=== PATIENT | male | born 1985 ===

== ENCOUNTER 2022-08-24 15:08 | Outpatient (REF) | payer OTHER, SELFPAY ==
[2022-08-26 11:16] LABS: COVID-19 RT-PCR UVMMC Result Negative (Negative)
== END 2022-08-24 15:09 | disposition home or self-care (01) ==
LOC: LBN 15:08
PROVIDERS: Visit Provider Physician Assistant Medical
DX: J02.9 Acute pharyngitis, unspecified (principal); Z20.822 Contact with and (suspected) exposure to COVID-19
CPT/HCPCS: U0003; 87081

== ENCOUNTER 2022-12-14 01:47 | Outpatient (CLI) | payer OTHER, SELFPAY ==
[2022-12-14 07:57] LABS: Calculated LDL 92 mg/dL (<100); Cholesterol 223 mg/dL (<200); HDL Cholesterol 120 mg/dL (40-60); Triglyceride 57 mg/dL (<150)
[2022-12-15 10:38] LABS: Hepatitis C Ab w Rflx HCV PCR Negative (Negative)
== END 2022-12-14 01:48 | disposition home or self-care (01) ==
LOC: LBO 01:47
PROVIDERS: Absent Provider Nurse Practitioner; PCP Nurse Practitioner; Visit Provider Nurse Practitioner
DX: Z13.220 Encounter for screening for lipoid disorders (principal); Z11.59 Encounter for screening for other viral diseases
CPT/HCPCS: 36415; 80061; 86803

== ENCOUNTER 2023-08-27 06:09 | Day surgery (SDC) | payer OTHER, SELFPAY ==
--- NOTE | 2023-08-26 07:21 | W.PM.DSUDISC ---
Date of service: 08/27/23 Time of Service: 08:02 Discharge Plan Disposition Patient Disposition: Home Condition: Good Discharge Details Reason For Visit: Colonoscopy Attending Provider: Mahesh Ramos Primary Care Provider: Windy Bernal Home Meds and New Rx's Prescriptions: Continued hydrocortisone acetate [Anusol-HC] 25 mg suppository 25 mg DC DAILY PRN (Reason: hemorrhoids) Qty: 24 3RF hydrocortisone 2.5 % cream with perineal applicator 1 applic DC BID PRN (Reason: hemorrhoids) Qty: 30 0RF Rx Instructions: Use for 7 days at a time escitalopram oxalate 10 mg tablet 10 mg PO DAILY Qty: 90 1RF triamcinolone acetonide 0.1 % cream 1 applic topical BID PRN (Reason: rash arms, legs) Qty: 80 3RF ketoconazole 2 % cream 1 applic topical DAILY Qty: 60 3RF Discontinued bisacodyl [Dulcolax (bisacodyl)] 5 mg tablet,delayed release (DR/EC) 5 mg PO ONCE Qty: 4 0RF Rx Instructions: Colonoscopy Bowel Prep- Per Instructions polyethylene glycol 3350 17 gram/dose powder 238 g PO ONCE Qty: 238 0RF Rx Instructions: Colonoscopy Bowel Prep- Per Instructions Discharge Instructions Instructions: Hemorrhoids (GEN) Additional Instructions: Seng, we were able to complete your colonoscopy today without any difficulty. You have a little bit of internal hemorrhoids, which could certainly account for some blood associated with bowel movements. Otherwise, the entire lining of your colon looked quite normal and healthy. I did perform multiple biopsies all along the way. I will be in touch when I have the results from the biopsies, but I do not suspect anything worrisome at this point. In the meantime, it would be very reasonable to add some more dietary fiber to help regulate your bowel movements. Recommendations for dietary fiber in the [place] suggest about 30 g or more, which most of us do not meet on a daily basis. Supplementing your diet with things like psyllium is a very reasonable approach for most people. 1. If tolerated, consume a soft, low fiber diet for 1-2 days. 2. Do not drive, drink alcohol, operate machinery, make critical decisions, or do activities that require coordination or balance for 24 hours. 3. Because air was put into your colon during the procedure, expelling air from your rectum (passing gas or farting) is normal. 4. You may not have a bowel movement for 1-3 days because of the colonoscopy prep. This is normal. 5. Go directly to the emergency room if you notice any of the following: Develop chills (warm to touch), or if you have a thermometer and your temperature is above 101 Difficulty breathing or difficultly swallowing Persistent vomiting Severe abdominal pain, other than gas cramps Severe chest pain Black, tarry stools Any bleeding ? exceeding one tablespoon 6. Call your physician if the site where your intravenous was started becomes red, swollen, painful, and warm to touch. 7. Your physician has reviewed your pre-procedure medications. Please continue to take those medications as previously ordered. You will be given specific information/education regarding any changes to your medications before leaving. Activity:: Activity as Tolerated Diet:: As Tolerated Discharge Orders Discharge Orders: Discharge Order (Routine); Ordered 08/26/23 Ordered By: Mahesh Ramos DS: Diagnosis Discharge Diagnosis (1) Change in bowel habits: Status: Acute
--- NOTE | 2023-08-26 07:23 | COLE_ITS ---
Date of service: 08/27/23 Time of Service: 08:05 Colonoscopy Report Date of procedure: 08/27/23 Pre-op diagnosis general: diagnostic colonoscopy Post-op diagnosis procedure note: other (Internal hemorrhoids; otherwise normal- appearing) Procedure: Colonoscopy with biopsies Surgeon: Mahesh Ramos Anesthesia Type: General:No Airway Estimated blood loss (mL): 10 Pathology: other (Random colon biopsies) Complications: None Disposition: same day Indications: Seng is 38 years old. He has palvic pain associated with some bowel movements and has had evidence of hematochezia in the past. Prep: Miralax/Dulcolax Procedure Start Time: 07:33 Procedure End Time: 07:44 Retraction Time: 4 Findings: Grade 1 internal hemorrhoids; otherwise normal-appearing colonoscopy Procedure Description: After the induction of monitored anesthetic care, and with the patient in left lateral decubitus position, I began by performing an external anorectal exam.? Perineum and skin were normal, as was the anal verge.? There was no not evidence of external hemorrhoids.? Next, I performed a digital rectal exam.? I did appreciate any abnormal findings.? Next, I advanced a colonoscope into the rectal vault.? I performed retroflexion.? There were grade 1 internal hemorrhoids.? Using insufflation, I then advanced the colonoscope beyond the rectal folds and into the sigmoid colon before advancing towards the cecum.? The quality of the prep was excellent.? The scope was noted to be in the cecum by identification of the ileocecal valve and appendiceal orifice.? Despite several attempts, I was not able to cannulate the terminal ileum. However, the ileocecal valve appeared totally normal, given the absence of other findings, I think the likelihood of terminal ileitis is quite low here. I then began withdrawing the colonoscope using repeated irrigation as necessary for full evaluation of the colonic mucosa. In order to rule out microscopic colitis, I did perform multiple biopsies of the colon and rectum using cold forceps. There was minimal bleeding. ?Once the scope was withdrawn to the level of the rectum, great care was taken to examine portions of the rectal folds.? Finally, the scope was withdrawn and the patient was brought to the same-day surgery recovery unit as the anesthetic wore off. ?The findings and instructions were shared with the patient prior to discharge. [place] Bowel Prep [place] Bowel Prep Right Colon: 3 Left Colon: 3 Transverse Colon: 3 Total Score: 9
[2023-08-27 06:31] VITALS: BP 124/83; PULSE 70; RESP 16; TEMP 36.6; O2SAT 100
[2023-08-27] MEDS: Lactated Ringers 1,000 ML 80 ML IV (06:35)
--- NOTE | 2023-08-27 06:55 | ANES.PREOP_ITS ---
General Info Date of Service Date Performed: 08/27/23 Height: 5 ft 5 in Weight: 71 kg Body Mass Index (BMI): 26.0 Surgical Procedure: Operation Date: 08/27/23 07:35 Proposed Procedure Side Surgeon alise Ramos MD Meds Allergies and Home Medications Allergies Allergy/AdvReac Type Severity Reaction Status Date / Time No Known Allergies Allergy Verified 08/27/23 06:18 Home Medication Medication Instructions Recorded ketoconazole 2 % topical cream 1 applic topical DAILY seborrhea 11/29/22 scalp #60 grams triamcinolone acetonide 0.1 % 1 applic topical BID PRN rash 11/29/22 topical cream arms, legs #80 grams hydrocortisone acetate 25 mg 25 mg CO DAILY PRN hemorrhoids #24 04/25/23 rectal suppository (Anusol-HC) ea hydrocortisone 2.5 % topical cream 1 applic CO BID PRN hemorrhoids 06/22/23 with perineal applicator #30 grams escitalopram oxalate 10 mg tablet 10 mg PO DAILY #90 tabs 07/03/23 Current Visit Medications: Current Medications Generic Name Dose Route Start Last Admin Trade Name Freq PRN Reason Stop Dose Admin Hyoscyamine Sulfate 0.125 mg 08/26/23 07:24 Hyoscyamine 0.125 Mg Sl/Oral/Chew SL 09/25/23 07:23 DIRECTED PRN Ringer's Solution 1,000 mls @ 80 mls/hr 08/27/23 06:00 08/27/23 06:35 IV 08/27/23 23:59 80 mls/hr INFUSION ALBERTA Administration IV Miscellaneous Supplies 1 each 08/27/23 06:00 Iv Access IV 08/27/23 23:59 DIRECTED ALBERTA Ondansetron HCl 4 mg 08/26/23 07:24 Ondansetron 4 Mg/2 Ml Vial IVP 09/25/23 07:23 Q4H PRN PRN Nausea / Vomiting Sodium Chloride 0 ml 08/27/23 06:00 Normal Saline Flush 10 Ml Syr IV 08/27/23 23:59 PRN PRN Sodium Chloride 0 ml 08/27/23 06:00 Normal Saline 10 Ml Vial IJ 08/27/23 23:59 DIRECTED PRN Sterile Water 0 ml 08/27/23 06:00 Water,Injection,Sterile 10 Ml Vial IJ 01/15/24 23:59 DIRECTED PRN PFSH Active Problems Active Problems: Problem Status Onset Code Change in bowel habits R19.4 Abdominal pain R10.9 Anxiety and depression F41.9, F32.A Surgical History Surgical History History of removal of skin mole Tobacco Smoking/Tobacco Use Status: Former Tobacco Use Passive smoking exposure: No Alcohol Alcohol Intake: current Alcohol intake frequency: a few times a month Substance Use Substance use: Occasionally Substance use type: marijuana Vital Signs and Lab Results Vital Signs Most Recent Vital Signs in EMR: Most Recent Vital Signs Temp Pulse Resp BP Pulse Ox 36.6 C 70 16 124/83 100 08/27/23 06:31 08/27/23 06:31 08/27/23 06:31 08/27/23 06:31 08/27/23 06:31 Lab Results Blood Type / Crossmatch: No Data to Display Complete Blood Count: No Data to Display Complete Metabolic Panel: No Data to Display Liver Function Panel: 2 No Data to Display Coagulation Panel: No Data to Display Cardiac Panel: No Data to Display Arterial Blood Gas: No Data to Display Venous Blood Gas: No Data to Display Pancreas Panel: No Data to Display Thyroid Panel: No Data to Display Infectious Disease: No Data to Display Blood Cultures: No Data to Display Toxicology Panel: No Data to Display Anesthesia Assessment and Plan Anesthesia History Personal History: No History of Anesthesia Complications Family History: No Family History of Anesthesia Complications Exercise Tolerance Exercise Tolerance: Metabolic Equivalents>4 Pertinent Negatives Pertinent Negatives: No Symptoms of GERD, No Major Cardiovascular Symptoms or Complaints, No Major Pulmonary Symptoms or Complaints and No History of CVA/TIA Cardiac & Pulmonary Exam Cardiac Exam: Normal S1/S2 Heart Sounds Pulmonary Exam: Clear Bilateral Breath Sounds Implantable Cardiac Device Does patient have a Pacemaker or an ICD?: No Airway Exam Known Difficult Airway: No Mallampati Class: 3 Mouth Opening: Normal (> 3cm) Thyromental Distance: Greater than 3 cm Facial Hair: Full Dawn Neck Range of Motion: Full ROM Neck Circumference: Normal Teeth Condition: Normal Dentition ASA Classification ASA Score: ASA 2 Emergency Case?: No NPO Status NPO Status: NPO Clears >2 hours, Solids >8 hours Anesthesia Plan Resuscitation Status: Full Code Anesthesia Technique: General Anesthesia Airway Planned: Natural Airway Monitors Used: Standard Monitors
[2023-08-27 07:16] VITALS: BMI 26.0
--- NOTE | 2023-08-27 07:44 | BOWEL_PTH ---
PATIENT: Seng Fortune LOC: [facility] U#:[id number] AGE/SX: 38/M ROOM: RE08/27/[address]: Mahesh Ramos MD : 1985 BED: DIS: 08/27/2023 SPEC #: [id number] RECD: 08/27/23 13:02 STATUS: SADAF RE #: [id number] OSWALDO: 08/27/23 07:[address]: Mahesh Ramos DEPT: Surgical Specimen RECD BY: Renee Villalba ENTERED: 08/27/23 13:03 SP TYPE: Bowel OTHR DR: Windy Bernal APRN Tissues: 1 - BIOPSY BOWEL Procedures: GROSS AND MICRO LEVEL 4 Comments: [id number]
[2023-08-27 07:52] VITALS: BP 111/76; PULSE 57; RESP 16; TEMP 36.5; O2SAT 96
[2023-08-27 08:23] VITALS: BP 118/79; PULSE 54; RESP 16; TEMP 36.5; O2SAT 99
--- NOTE | 2023-08-27 08:34 | W.ANESPOSTOP ---
Postoperative Evaluation Date, Time and Location Date Performed: 08/27/23 Time Performed: 08:23 Patient Location: Day Surgery Unit Vital Signs Most Recent Imported Vital Signs: Most Recent Vital Signs Temp Pulse Resp BP Pulse Ox 36.5 C 54 L 16 118/79 99 08/27/23 08:23 08/27/23 08:23 08/27/23 08:23 08/27/23 08:23 08/27/23 08:23 Pain Score Most Recent Pain Score: Most Recent Pain Score Pain Level 0 08/27/23 08:23 Assessment Mental Status: Awake (Alert & Oriented to Patient Baseline) Airway and Respiratory Function: Patent airway with normal (patient baseline) respiratory exam Cardiovascular Function: Hemodynamically Stable Hydration Status: Adequately Hydrated Nausea & Vomiting: No Nausea or Vomiting Pain: Pt. Denies Any Pain Peripheral Nerve Block: Patient did not receive a nerve block
== END 2023-08-27 08:43 | disposition home or self-care (01) ==
LOC: SUR 06:09
PROVIDERS: PCP Nurse Practitioner; Visit Provider Surgery
PROC: 0DJD8ZZ Inspection of Lower Intestinal Tract, Via Natural or Artificial Opening Endoscopic (ICD-10-PCS; CPT 45378; principal; 2023-08-27 07:30)
DX: R19.4 Change in bowel habit (principal); R10.9 Unspecified abdominal pain; R19.7 Diarrhea, unspecified
CPT/HCPCS: 45380; 88305; J2001; J2704

== ENCOUNTER → 2023-11-03 14:11 | Outpatient (CLI) | payer OTHER, SELFPAY ==
--- NOTE | 2023-11-03 | DI.RAD_ITS ---
Exam(s) XR RIBS LT PA CHEST 3V CLINICAL HISTORY R07.81 PLEURODYNIA. COMPARISON: No exams were available for comparison TECHNIQUE:: PA view of the chest and 3 views of the left ribs were performed. FINDINGS: LUNGS: Clear. No pleural abnormality seen. HEART: Normal. MEDIASTINUM: Normal. BONES: No displaced rib fracture is seen. No compression fractures are seen in the thoracic spine. No bony destructive lesion is seen. OTHER FINDINGS: None. IMPRESSION: 1. Unremarkable radiographic appearance of the left ribs. 2. No acute pulmonary findings.
--- NOTE | 2023-11-03 14:52 | DI.VRAD_ITS ---
PROCEDURE INFORMATION: Exam: XR Left Ribs with PA Chest Exam date and time: 11/03/2023 2:25 PM Age: 38 years old Clinical indication: Other: Pleurodynia TECHNIQUE: Imaging protocol: Radiologic exam of the left ribs with PA chest. Views: 3 views COMPARISON: No relevant prior studies available. FINDINGS: Lungs: Unremarkable. No consolidation. Pleural spaces: Unremarkable. No pleural effusion. No pneumothorax. Heart/Mediastinum: Unremarkable. No cardiomegaly. Bones/joints: Unremarkable. IMPRESSION: No acute findings. Dictated and Authenticated by: Justen Wyatt MD. Ordering:NISA SINGH MD
== END ==
PROVIDERS: PCP Nurse Practitioner; Visit Provider Nurse Practitioner Family
DX: R07.81 Pleurodynia (principal)
CPT/HCPCS: 71101

== ENCOUNTER 2023-11-10 21:11 | Emergency (ER) | payer OTHER, SELFPAY ==
[2023-11-10 21:18] VITALS: BP 154/97; PULSE 89; RESP 19; TEMP 36.8; O2SAT 98
--- NOTE | 2023-11-10 21:47 | ED.GENADUL_ITS ---
Discharge Plan Discharge Details Chief Complaint: Suicide-Atempt Primary Care Provider: Windy Bernal ED Provider: Ashley An Home Meds and New Rx's Prescriptions: No Action escitalopram oxalate 10 mg tablet 10 mg PO DAILY Qty: 90 1RF ketoconazole 2 % cream 1 applic topical DAILY Qty: 60 3RF clobetasol 0.05 % shampoo 1 applic TOPICAL DAILY Patient Comments: APPLY TO SCALP DIRECTED ONCE DAILY HPI General Mode of arrival: ambulatory . Date/Time Provider Initiated Documentation: 11/10/23 21:29 . Limitations to Documentation: no limitations . Information obtained by: patient, RN notes reviewed and old records reviewed . HPI Narrative: 38-year-old male presents to the ER with a chief complaint of suicidal ideations. He reports that a couple nights ago he put a rifle into his mouth but changed his mind. He states that he is also on an antidepressant which is not doing anything for him. He reports that he is not sleeping well, he is eating okay. Recent life stressors. He did endorse some alcohol earlier this evening. He also endorses occasional marijuana. He denies any other illicit drugs or alcohol use. He is alert and oriented, calm and cooperative at this time. Related Data Home Medications Medication Instructions Recorded Confirmed ketoconazole 2 % topical cream 1 applic topical DAILY seborrhea 11/29/22 11/10/23 scalp #60 grams escitalopram oxalate 10 mg tablet 10 mg PO DAILY #90 tabs 07/03/23 11/10/23 clobetasol 0.05 % shampoo 1 applic topical DAILY 11/10/23 11/10/23 Previous Rx's Medication Instructions Recorded ketoconazole 2 % topical cream 1 applic topical DAILY seborrhea 11/29/22 scalp #60 grams escitalopram oxalate 10 mg tablet 10 mg PO DAILY #90 tabs 07/03/23 Allergies Allergy/AdvReac Type Severity Reaction Status Date / Time No Known Allergies Allergy Verified 08/27/23 06:18 General Stated Complaint: Suicide-Atempt STEVE: 2 Review of Systems All systems reviewed & are unremarkable except as noted in HPI and below Psychiatric Psychiatric: Reports as per HPI, Reports depression and Reports suicidal ideation Exam Narrative Exam Narrative: Constitutional: Alert and oriented x3. Appears stated age. Normal body habitus. Head: Normocephalic, no trauma. Eyes: Pupils PERRL, Red reflex noted, EOM's intact. Eyelids symmetrical without lesions, discharge, or swelling. ENT: Bilateral TM's WNL, External ear normal to inspection, no mastoid TTP, swelling, or erythema, Nasal turbinates WNL, no nasal discharge. Normal dentition, Posterior pharynx WNL, no exudate. Chest: RRR, Normal S1, S2, distal pulses intact. Resp: Lungs clear to auscultation bilaterally, no wheezes, rales, or rhonchi. Abdomen: Soft, non-distended, Normoactive bowel sounds all 4 quads. Musculoskeletal: Normal gait, 5/5 strength to all four extremities. Skin: No suspicious rashes or lesions. Capillary refill less than 2 sec. Neurologic: Cranial nerves II-XII intact. Alert and oriented x 3. Motor: No def icits noted. Sensory: Intact bilaterally all 4 extremities. Reflexes: DTR's intact bilaterally.. Hematologic/Lymphatic: No ecchymosis, no lymphadenopathy. Psych Appearance: disheveled Speech and Movement: slowed movement Mood: labile mood Affect: sad Attitude: guarded and avoids eye contact Thought Process: normal Thought Content: suicidality Insight: insight good Judgment: judgment good Course Vital Signs Vital signs: Vital Signs Temperature 36.8 C 11/10/23 21:18 Pulse 89 11/10/23 21:18 Respiratory Rate 19 11/10/23 21:18 Blood Pressure 154/97 H 11/10/23 21:18 Pulse Oximetry 98 11/10/23 21:18 Temperature 36.8 C 11/10/23 21:18 Temperature Source Temporal Artery Scan 11/10/23 21:18 Pulse 89 11/10/23 21:18 Respiratory Rate 19 11/10/23 21:18 Respiratory Effort Normal, Non-Labored 11/10/23 21:26 Blood Pressure 154/97 H 11/10/23 21:18 Pulse Oximetry 98 11/10/23 21:18 Oxygen Delivery Method Room Air 11/10/23 21:18 Oxygen Flow Rate 0 11/10/23 21:18 Pain Level 6 11/10/23 21:18 Comment L side pain 'from work injury' 11/10/23 21:18 Medical Decision Making 38-year-old male presents to the ER with a chief complaint of suicidal ideations. He reports that a couple nights ago he put a rifle into his mouth but changed his mind. He states that he is also on an antidepressant which is not doing anything for him. He reports that he is not sleeping well, he is eating okay. Recent life stressors. He did endorse some alcohol earlier this evening. He also endorses occasional marijuana. He denies any other illicit drugs or alcohol use. He is alert and oriented, calm and cooperative at this time. Medical clearance ordered, Care to be handed off to oncoming provider Dr. Mary Chacon, ER attending pending mental health eval and disposition at this time patient is calm and cooperative most likely seeking voluntary placement at this time. 40 mill equivalents potassium ordered, UDS negative, ethyl alcohol 250. Lab Data Lab results reviewed: Yes I reviewed the patient's lab results. Labs: Laboratory Tests Range/Units 11/10/23 11/10/23 22:45 22:55 WBC (4.4-10.8) 10^3/uL 3.29 L RBC (4.36-5.78) 10^6/uL 4.04 L Hgb (13.5-17.5) g/dL 13.3 L Hct (40.0-50.0) % 37.2 L MCV (80-95) fL 92 MCH (27.0-33.0) pg 32.9 MCHC (32.0-36.0) % 35.8 RDW (11.8-14.1) % 13.2 Plt Count (130-400) 10^3/uL 229 MPV (8.0-11.0) fL 8.8 Immature Gran % 0.3 Neutrophils % 42.6 Lymphocytes % 43.2 Monocytes % 10.6 Eosinophils % 1.8 Basophils % 1.5 Nucleated RBC % (0.0-0.3) % 0.0 Absolute Neutrophils (1.2-6.7) 10^3/uL 1.40 Absolute Lymphocytes (1.2-3.4) 10^3/uL 1.42 Absolute Monocytes (0.1-0.8) 10^3/uL 0.35 Absolute Eosinophils (0.0-0.7) 10^3/uL 0.06 Absolute Basophils (0.0-0.2) 10^3/uL 0.05 Sodium (136-145) mmol/L 135 L Potassium (3.5-5.1) mmol/L 3.4 L Chloride (98-107) mmol/L 95 L Carbon Dioxide (21.0-32.0) mmol/L 26.7 Anion Gap (3-11) mmol/L 13.3 H BUN (7-18) mg/dL 7 Creatinine (0.70-1.30) mg/dL 0.8 Est GFR (CKD-EPI 2020) (mL/min/1.73m2) 117.63 Glucose (74-106) mg/dL 118 H Calcium (8.5-10.1) mg/dL 8.6 Magnesium (1.8-2.4) mg/dL 2.2 Total Bilirubin (0.2-1.0) mg/dL 0.4 AST (15-37) U/L 59 H ALT (16-63) U/L 61 Alkaline Phosphatase (46-116) U/L 64 Total Protein (6.4-8.2) g/dL 7.4 Albumin (3.4-5.0) g/dL 4.0 TSH (0.36-3.74) uIU/mL 1.18 Urine Color (Yellow) Yellow Urine Clarity (Clear) Clear Urine pH (5-8) 5.5 Ur Specific [place] (1.005-1.025) <= 1.005 Urine Protein (Neg-Trace) mg/dL Negative Urine Ketones (Negative) mg/dL Negative Urine Blood (Negative) Trace-lysed H Urine Nitrite (Negative) Negative Urine Bilirubin (Negative) Negative Urine Urobilinogen (Up to 0.2) mg/dL 0.2 Ur Leukocyte Esterase (Negative) Negative Urine RBC (0-2) HPF 0-2 Urine WBC (0-5) HPF Negative Ur Epithelial Cells (Negative) HPF Negative Urine Crystals (Negative) HPF Negative Urine Bacteria (Negative) HPF Rare Urine Casts (Negative) LPF Negative Urine Mucus (Negative) Negative Ur Culture Indicated? No Urine Glucose (Negative) mg/dL Negative Salicylates (<2.8) mg/dL < 2.8 Urine Opiates Screen (Negative) Negative Urine Methadone Screen (Negative) Negative Acetaminophen (10-30) ug/mL < 2 Ur Barbiturates Screen (Negative) Negative Ur Tricyclics Screen (Negative) Negative Ur Amphetamines Screen (Negative) Negative U Benzodiazepines Scrn (Negative) Negative Urine Cocaine Screen (Negative) Negative Ur THC Screen (Negative) Negative Ethyl Alcohol (<10) mg/dL 250.1 H Quality:SDOH Health Related Social Needs: No Data to Display PFSH All Active Problems Change in bowel habits (Acute) Abdominal pain (Acute) Anxiety and depression (Chronic) Surgical History History of colonoscopy (~08/2023) with biopsies History of removal of skin mole Family History Mother Alcohol use disorder Breast cancer Depression Diabetes Hypertension Stroke Substance use disorder Father Alcohol use disorder Cancer Skin, oral Heart disease Several MIs Hypertension Maternal Uncle Colon cancer Social History Smoking/Tobacco Use Status: Former Tobacco Use Quit Date: 08/13/14 Tobacco: How many years used: 6 Smoking risk assessment performed?: Yes Alcohol Intake: current Alcohol Intake frequency: a few times a month Alcohol type: beer Drug use: Occasionally Substance use type: marijuana Household members: spouse Housing: house current occupation: transit driver Current gender identity: male Do you feel safe at home: Yes Do you feel safe in your relationship?: Yes Additional Social history: Partner is supportive despite divorce in progress PAWSS Have you Been Recently Intoxicated or Drunk Within the Last 30 days?: No Have you Ever Experienced Previous Episodes of Alcohol Withdrawal?: No Have you ever Experienced Withdrawal Seizures?: No Have you ever Experienced Delirium Tremens(DT)s?: No Have you ever undergone Alcohol Rehabilitation Treatment (i.e, inpt ot outpatient treatment programs)?: No Have you ever Experienced Blackouts?: No Have you ever Combined Alcohol with other Downers within the last 90 days?: No Have you ever Combined Alcohol with any other Substance of Abuse during the last 90 days?: No Positive Blood Alcohol level on Presentation? [PCS.BAL]: No Evidence of Increased Autonomic Activity (i.e. HR>120, tremor, sweating, agitation, nausea)?: No Result: 0
[2023-11-10 22:53] LABS: Abs Immature Grans 0.01 10^3/uL (0.0-0.06); Absolute Basophil Count 0.05 10^3/uL (0.0-0.2); Absolute Eosinophil Count 0.06 10^3/uL (0.0-0.7); Absolute Lymphocyte Count 1.42 10^3/uL (1.2-3.4); Absolute Monocyte Count 0.35 10^3/uL (0.1-0.8); Basophils % 1.5; Eosinophils % 1.8; HCT 37.2 % (40.0-50.0); HGB 13.3 g/dL (13.5-17.5); Immature Grans % 0.3; Lymphocytes % 43.2; MCH 32.9 pg (27.0-33.0); MCHC 35.8 % (32.0-36.0); MCV 92 fL (80-95); MPV 8.8 fL (8.0-11.0); Monocytes % 10.6; Neutrophils % 42.6; Platelet Count 229 10^3/uL (130-400); RBC 4.04 10^6/uL (4.36-5.78); RDW 13.2 % (11.8-14.1); RDW-SD 44.6 fL; WBC 3.29 10^3/uL (4.4-10.8)
[2023-11-10 23:06] LABS: Bilirubin Negative (Negative); Blood Trace-lysed (Negative); Clarity Clear (Clear); Glucose Negative (Negative); Ketones Negative (Negative); Leukocyte Esterase Negative (Negative); Nitrite Negative (Negative); Specific Gravity <= 1.005 (1.005-1.025); Urobilinogen 0.2 mg/dL (Up to 0.2); pH 5.5 (5-8)
[2023-11-10 23:10] LABS: Bacteria Rare HPF (Negative); C & S Indicated? No; Casts Negative LPF (Negative); Crystals Negative HPF (Negative); Epithelial Cells Negative HPF (Negative); Mucus Negative (Negative); RBC 0-2 HPF (0-2); WBC Negative HPF (0-5)
[2023-11-10 23:12] LABS: ALT 61 U/L (16-63); AST 59 U/L (15-37); Alkaline Phosphatase 64 U/L (46-116); Anion Gap 13.3 mmol/L (3-11); BUN 7 mg/dL (7-18); Bilirubin, Total 0.4 mg/dL (0.2-1.0); CO2 26.7 mmol/L (21.0-32.0); CREATININE 0.8 mg/dL (0.70-1.30); Calcium 8.6 mg/dL (8.5-10.1); Chloride 95 mmol/L (98-107); Estimated GFR 117.63 (mL/min/1.73m2); Glucose 118 mg/dL (74-106); Magnesium 2.2 mg/dL (1.8-2.4); Potassium 3.4 mmol/L (3.5-5.1); Sodium 135 mmol/L (136-145); Total Protein 7.4 g/dL (6.4-8.2)
[2023-11-10 23:17] LABS: Salicylate < 2.8 mg/dL (<2.8)
[2023-11-10 23:20] LABS: Acetaminophen < 2 ug/mL (10-30); ETHANOL BLOOD 250.1 mg/dL (<10); TSH (W/Ref FT4) 1.18 uIU/mL (0.36-3.74)
[2023-11-10 23:23] LABS: *AMPHETAMINES SCREEN URINE Negative (Negative); *BARBITURATES SCREEN URINE Negative (Negative); *BENZODIAZEPINES SCREEN URINE Negative (Negative); Cannabinoids THC Negative (Negative); Cocaine Screen,Urine Negative (Negative); METHADONE URINE SCREEN Negative (Negative); OPIATES URINE SCREEN Negative (Negative)
[2023-11-10 23:24] LABS: Tricyclic Antidepressants Negative (Negative)
--- NOTE | 2023-11-11 00:22 | W.EDPROG ---
Date of service: 11/10/23 Time of Service: 23:30 Medical Decision Making 38-year-old male presented with suicidal ideation. He was seen by mental health and safety plan was arranged. Patient alcohol level significantly elevated. Will state ER overnight to sober and reassess safety in the morning. Patient slept throughout night. Signed out awaiting reassessment and likely discharge with safety plan. Quality:SDOH Health Related Social Needs: No Data to Display Discharge Plan Discharge Details Chief Complaint: Suicide-Atempt Clinical Impression: Suicidal ideation, Alcohol intoxication, Anxiety and depression Primary Care Provider: Windy Bernal ED Provider: Mary Orozco Home Meds and New Rx's Prescriptions: No Action escitalopram oxalate 10 mg tablet 10 mg PO DAILY Qty: 90 1RF ketoconazole 2 % cream 1 applic topical DAILY Qty: 60 3RF clobetasol 0.05 % shampoo 1 applic TOPICAL DAILY Patient Comments: APPLY TO SCALP DIRECTED ONCE DAILY
--- NOTE | 2023-11-11 07:07 | W.EDPROG ---
Date of service: 11/11/23 Time of Service: 07:07 Medical Decision Making I received signout on this 38-year-old male who arrives intoxicated in the setting of suicidal ideation. He was seen by [facility] and is pending a sober reevaluation. [facility] wrote a safety plan. Patient reportedly had a gun in his mouth and had thoughts of pulling the trigger in the setting of suicidal ideation. This occurred when he was intoxicated. 7:20 AM I met with the patient. He was calm oriented and quite insightful into his condition. He reported history of increasing anxiety and panic attacks. His primary care had placed him on escitalopram. He was requesting something additional for anxiety for which I will prescribe him hydroxyzine. He had good insight into his condition. Nonetheless given his concerning history I offered him voluntary hospitalization which he declined. He reports that he has a rifle at home but that it is locked and that he gave the goldman to his partner. He does not drink ethanol every day and he certainly has no signs of withdrawal at the moment.Patient had an ethanol level of 250 ng/dL and a conservative clearance of 25 mg/dL/h patient should be alcohol free approximately 10 hours after his arrival. He arrived in the emergency department approximately 10 hours ago. Given that he has a safety plan from [facility] will discharge with empiric trial of expectant outpatient management. Quality:[facility] Health Related Social Needs: No Data to Display Sign Out Sign Out Data: Sign Out Comment: 38-year-old male with suicidal ideation. Seen by mental health and safety plan needed. Patient was however intoxicated. Will need reassessment in a.m. when wakes to ensure safety plan is appropriate. Last updated by Mary Orozco MD at 11/11/23 07:04 Discharge Plan Disposition Patient Disposition: Home Discharge Details Clinical Impression: Suicidal ideation, Alcohol intoxication, Anxiety and depression Primary Care Provider: Windy Bernal ED Provider: Kemar Ly Home Meds and New Rx's Prescriptions: New hydroxyzine HCl 25 mg tablet 25 mg PO TID PRNQty: 14 0RF Continued escitalopram oxalate 10 mg tablet 10 mg PO DAILY Qty: 90 1RF ketoconazole 2 % cream 1 applic topical DAILY Qty: 60 3RF clobetasol 0.05 % shampoo 1 applic TOPICAL DAILY Patient Comments: APPLY TO SCALP DIRECTED ONCE DAILY Discharge Instructions Instructions: Help Prevent Suicide (ED), Anxiety (ED) Additional Instructions: You are seen in the emergency department for your suicidal ideation. You met with [facility] human services. If you do not feel safe with this plan please return to the emergency department. Please continue taking your regular medicines as previously prescribed. You are also receiving a prescription for a medicine to treat anxiety which you should use as needed. Please follow-up with your primary care provider next week.
[2023-11-11 07:54] VITALS: BP 119/66; PULSE 75; RESP 12; TEMP 36.6; O2SAT 96
[2023-11-11 07:55] VITALS: BP 119/66; PULSE 75; RESP 12; TEMP 36.6; O2SAT 96
[2023-11-11] MEDS: hydrOXYzine HCL 25 MG TAB PO (09:08)
[2023-11-11] MEDS: hydrOXYzine HCL 25 MG TAB (09:10)
== END 2023-11-11 08:36 | disposition home or self-care (01) ==
PROVIDERS: Registered Nurse Emergency; Emergency Provider Emergency Medicine; PCP Nurse Practitioner
DX: R45.851 Suicidal ideations (principal); F32.A Depression, unspecified; F41.9 Anxiety disorder, unspecified; F10.120 Alcohol abuse with intoxication, uncomplicated; Y90.8 Blood alcohol level of 240 mg/100 ml or more; Z87.891 Personal history of nicotine dependence
CPT/HCPCS: 00123; 80053; 80307; 99284; 80320; 80329; 81003; 81015; 83735; 84443; 85025

== ENCOUNTER 2023-12-18 05:42 | Outpatient (CLI) | payer OTHER, SELFPAY ==
[2023-12-18 11:39] LABS: Abs Immature Grans 0.23 10^3/uL (0.0-0.06); Absolute Basophil Count 0.09 10^3/uL (0.0-0.2); Absolute Eosinophil Count 0.07 10^3/uL (0.0-0.7); Absolute Lymphocyte Count 2.17 10^3/uL (1.2-3.4); Absolute Monocyte Count 0.74 10^3/uL (0.1-0.8); Absolute Neutrophil Count 2.89 10^3/uL (1.2-6.7); Basophils % 1.5 %; Eosinophils % 1.1 %; HCT 39.5 % (40.0-50.0); HGB 13.1 g/dL (13.5-17.5); Immature Grans % 3.7 %; Lymphocytes % 35.1 %; MCH 31.9 pg (27.0-33.0); MCHC 33.2 % (32.0-36.0); MCV 96 fL (80-95); MPV 8.7 fL (8.0-11.0); Neutrophils % 46.6 %; Platelet Count 281 10^3/uL (130-400); RBC 4.11 10^6/uL (4.36-5.78); RDW 13.2 % (11.8-14.1); RDW-SD 47.2 fL; WBC 6.19 10^3/uL (4.4-10.8)
[2023-12-19 10:15] LABS: Lyme Ab w Rflx to Lyme Confirm Negative (Negative)
[2023-12-20 21:45] LABS: Anaplasma phagocytophilum Negative (Negative); B. miyamotoi PCR Negative (Negative); Babesia divergens/MO-1 Negative (Negative); Babesia duncani Negative (Negative); Babesia microti Negative (Negative); Ehrlichia chaffeensis Negative (Negative); Ehrlichia ewingii/canis Negative (Negative); Ehrlichia muris eauclairensis Negative (Negative)
[2023-12-22 21:48] LABS: Lab Add On Test DONE
[2023-12-22 22:07] LABS: Iron 74 ug/dL (65-175); Total Iron Binding Capacity 257 ug/dL (250-450); Transferrin Sat 29 % (20-55)
== END 2023-12-18 05:43 | disposition home or self-care (01) ==
LOC: LBO 05:42
PROVIDERS: PCP Nurse Practitioner; Referring Provider Student in an Organized Health Care Education/Training Program; Visit Provider Student in an Organized Health Care Education/Training Program
DX: L03.211 Cellulitis of face (principal)
CPT/HCPCS: 36415; 87798; 83540; 83550; 85025; 86618